=== PATIENT | female | born 1960 | race Two or more races ===

== ENCOUNTER 2023-11-10 11:45 | Emergency (ER) | payer OTHER, SELFPAY ==
[2023-11-10 11:47] VITALS: BP 176/91; BMI 28.3
[2023-11-10 11:51] VITALS: BP 168/90
[2023-11-10 13:32] LABS: % Basophils 1.3 % (0-2); % Eosinophils 5.4 % (0-6); % Immature Granulocytes 0.2 % (0-0.5); % Lymphocytes 38.7 % (20.5-51.1); % Monocytes 8.2 % (1.7-9.3); % Neutrophils 46.2 % (42.2-75.2); Absolute Basophils 0.1 10^3/uL (0-0.2); Absolute Eosinophils 0.3 10^3/uL (0-0.7); Absolute Lymphocytes 2.4 10^3/uL (1.2-3.4); Absolute Monocytes 0.5 10^3/uL (0.1-0.6); Absolute Neutrophils 2.9 10^3/uL (1.4-6.5); Hematocrit 36.9 % (37.0-47.0); Hemoglobin 12.3 g/dL (12.0-16.0); Mean Corp Hgb Conc. 33.3 g/dL (33.0-37.0); Mean Corpuscular Hgb 29.1 pg (27.0-31.0); Mean Corpuscular Volume 87.2 fL (81.0-99.0); Mean Platelet Volume 10.2 fL (7.4-10.4); Nucleated Red Blood Cells % 0 %; Platelet Count 298 10^3/uL (130-400); Red Blood Cell Count 4.23 10^6/uL (4.20-5.40); Red Cell Dist. Width 12.2 % (11.5-14.5); White Blood Cell Count 6.3 10^3/uL (4.8-10.8)
[2023-11-10 13:53] LABS: ALT (SGPT) 19 U/L (0-35); AST (SGOT) 31 U/L (14-36); Albumin 4.9 g/dl (3.5-5.0); Alkaline Phosphatase 70 U/L (38-126); Blood Urea Nitrogen 12 mg/dl (7-17); Calcium 11.1 mg/dl (8.4-10.2); Carbon Dioxide 30 mmol/L (22-30); Chloride 102 mmol/L (98-107); Estimated Creatinine Clearance 81 ml/min; Glucose 99 mg/dl (70-99); Potassium 4.4 mmol/L (3.5-5.1); Sodium 140 mmol/L (135-145); Total Bilirubin 0.9 mg/dl (0.2-1.3); eGFR > 60.00
--- NOTE | 2023-11-10 15:49 | ED.GENMED ---
History of Present Illness
General
Chief Complaint: Back Pain
Source: patient and family
Exam Limitations: none
Time Seen by Provider: 11/10/23 13:00
Nursing documentation reviewed up to this point in time: agreed with
History of Present Illness
History of Present Illness:
63-year-old female presenting to the emergency department with concerns of mid, upper back pain as well as neck pain over the past 3 weeks denies specific injury but has had discomfort with some movements and positioning. Also some discomfort to
the back of her head. Was given baclofen by the primary care doctor without relief.
Review of Systems
Review of Systems
Allergies reviewed?: Yes
All Other Systems: ROS reviewed and negative except as documented in HPI and ROS
Phy Exam
Physical Exam
Physical Exam:
GENERAL: Alert , in no apparent distress
EYE: pupils equal and reactive
NECK: Reproducible tenderness to the posterior lower paraspinal muscles no midline pain overlying redness swelling or warmth supple, no significant adenopathy.
ENT: o/p clr, mmm.
CARDIAC: Regular rate and rhythm .
LUNGS: Clear breath sounds bilaterally, no acute respiratory distress, no wheezes/rales/rhonchi
ABDOMEN: Soft, without focal tenderness, no r/g, no cvat
NEUROLOGICAL: Alert and oriented, no focal neuro deficits
SKIN: Warm and dry, skin intact.
MUSCULOSKELETAL: No edema, well perfused.
PSYCH: Normal and appropriate interaction.
Course
Orders/Labs/Results
Orders:
Orders
11/10/23 13:13
EKG [Electrocardiogram (*1)] Urgent
Reason for Study: Vertigo / Dizzy
CT Head & Neck Angio W/wo IV Urgent
Comment:
Reason For Exam: multiple stroke history, neck pain, dizziness,
EKG- Treatment ONCE
11/10/23 13:23
CBC/With Diff [Complete Blood Count/With Diff] Urgent
CMP [Comprehensive Metabolic Panel] Urgent
11/10/23 15:49
Diazepam [Valium] 5 mg PO NOW STA
Ketorolac [Toradol] 15 mg IV NOW STA
Ketorolac [Toradol] 30 mg IM NOW STA
Abnormal Lab Results
11/10/23
13:23
Hct 36.9 L %
(37.0-47.0)
Calcium 11.1 H mg/dl
(8.4-10.2)
11/10/23 13:23
11/10/23 13:23
Vital Signs
Initial and Last Documented VS:
Initial Vital Signs
Temp Pulse Resp BP Pulse Ox
98.2 F 72 16 176/91 99
11/10/23 11:47 11/10/23 11:47 11/10/23 11:47 11/10/23 11:47 11/10/23 11:47
Last Documented Vital Signs
Temp Pulse Resp BP Pulse Ox
98.2 F 73 16 168/90 97
11/10/23 11:47 11/10/23 11:51 11/10/23 11:51 11/10/23 11:51 11/10/23 11:51
MDM/Problems Addressed
MDM/Problems Addressed:
63-year-old female presenting to the emergency department with concerns of neck and upper back disc over the past 3 weeks. Here blood pressure elevated but otherwise vital signs are normal. Reproducible discomfort with movement of the head neck as
well as the upper shoulders. Labs unremarkable EKG normal. CT angiogram was performed considering she does have a history of stroke and has discomfort to her neck and also claims that she might of had some dizziness earlier today. Angiogram
without evidence of vascular abnormality. Symptoms at this point are most likely related to musculoskeletal issue. Plan for symptomatic treatment otherwise stable for outpatient management and close follow-up. Return precautions given.
*Critical Care Note
Total Time (30-74mins, 75-104mins- exclusive of procedures): Not Applicable
ED Attending Note
-
Portions of this chart may have been created with voice recognition software.� Occasional wrong word or��sound alike� substitutions may have occurred due to the inherent limitations of voice recognition software.
Discharge Plan
Departure
Patient Disposition: Home (Routine Discharge)
Date of Disposition: 11/10/23
Time of Disposition: 15:51
Patient with high blood pressure during this ER visit?: No
Condition: Good
Covid-19: Not Applicable
Discharge Problem:
Acute upper back pain, Acute neck pain
Instructions: Muscle Strain ED
Prescriptions:
New
tizanidine [Zanaflex] 2 mg capsule
2 mg PO Q8H PRN (Reason: muscle spasticity) Qty: 7 0RF
Referrals:
Konrad Rajan MD [Family Provider] -
Activity Restrictions/Additional Instructions:
You came to the emergency department today for concerns of discomfort to the upper back and neck. Your workup here was reassuring. Please follow closely as an outpatient. Return to the emergency department for any worsening, new or concerning
symptoms.
Interventions
Interventions:
*Risk Screen - Suicide Last Done: 11/10/23 11:47
*General Assessment Last Done: 11/10/23 11:58
*Neglect/Abuse Screening Last Done: 11/10/23 11:47
ED- Fall Risk Assessment Last Done: 11/10/23 11:58
*ED COVID-19 Vaccine History Last Done: 11/10/23 11:58
ED-Musculoskeletal Assessment Last Done: 11/10/23 11:58
Discharge Date and Time
Print Language: SWAZI
[2023-11-10] MEDS: TORADOL 15 MG IV (16:10)
[2023-11-10] MEDS: VALIUM 5 MG PO (16:10)
[2023-11-10 16:21] VITALS: BP 156/83
== END 2023-11-10 16:23 | disposition home or self-care (01) ==
LOC: EMR 11:45
PROVIDERS: Physician Assistant; EMERGENCY PHYSICIAN Emergency Medicine; FAMILY PHYSICIAN Internal Medicine
DX: M54.6 Pain in thoracic spine (principal); M54.2 Cervicalgia
CPT/HCPCS: 99285; 96374; 70496; 70498; 80053; 85025; 93005; Q9967

== ENCOUNTER → 2024-01-09 16:13 | Outpatient (REF) | payer OTHER, SELFPAY | LOC: WDC 16:13 | PROVIDERS: ATTENDING PHYSICIAN Physician Assistant; FAMILY PHYSICIAN Internal Medicine | DX: Z12.31 Encounter for screening mammogram for malignant neoplasm of breast (principal) | CPT/HCPCS: 77063; 77067 ==

== ENCOUNTER → 2024-04-24 11:34 | Outpatient (REF) | payer OTHER, SELFPAY | LOC: RAD 11:34 | PROVIDERS: ATTENDING PHYSICIAN Nurse Practitioner Family | DX: M54.2 Cervicalgia (principal) | CPT/HCPCS: 72050 ==

== ENCOUNTER 2024-06-05 06:34 | Day surgery (SDC) | payer OTHER, MEDICARE, SELFPAY | END 2024-06-05 14:43 | disposition home or self-care (01) | LOC: GI 06:34 | PROVIDERS: ATTENDING PHYSICIAN Internal Medicine Gastroenterology | DX: Z12.11 Encounter for screening for malignant neoplasm of colon (principal); K64.0 First degree hemorrhoids; D12.3 Benign neoplasm of transverse colon; K63.5 Polyp of colon | CPT/HCPCS: 45380; 88305 ==

== ENCOUNTER → 2024-11-04 07:59 | Outpatient (REF) | payer MEDICARE, OTHER, SELFPAY | LOC: HWRAD 07:59 | PROVIDERS: ATTENDING PHYSICIAN Physician Assistant; FAMILY PHYSICIAN Internal Medicine | DX: R10.13 Epigastric pain (principal) | CPT/HCPCS: 76700 ==

== ENCOUNTER 2024-11-09 09:10 | Emergency (ER) | payer MEDICARE, OTHER, SELFPAY ==
[2024-11-09 09:21] VITALS: BP 165/82
--- NOTE | 2024-11-09 11:09 | EDRN ---
Matthew FLORES in room w/pt.
--- NOTE | 2024-11-09 11:17 | ED.GENMED ---
History of Present Illness
General
Chief Complaint: Abdominal Pain
Source: patient
Exam Limitations: none
Time Seen by Provider: 11/09/24 10:56
History of Present Illness
History of Present Illness:
64-year-old female presents complaining of persistent epigastric abdominal pain that wraps around in a bandlike fashion around to her back. This has been present for the past 2 to 3 weeks. In the interim, she has seen GI as well as colorectal
surgery. Colorectal surgery deemed that she had hemorrhoids causing red blood in her rectum. She denies any black tarry stools. She is on Protonix 40 mg daily. She had an ultrasound as an outpatient which demonstrated gallstones but GI felt that
discomfort was not from the gallstones. She has an endoscopy scheduled for 2 weeks from now. The pain is too severe to continue waiting. The pain is not significantly made worse with eating. No fevers or vomiting. No chest pain or shortness of
breath. No other complaints.
Phy Exam
Physical Exam
Physical Exam:
General: Well-appearing female no acute respiratory distress
HEENT: Normocephalic atraumatic
Heart: Regular rate and rhythm
Lungs: Clear no wheeze
Abdomen soft tender in the epigastric region no guarding nondistended no costovertebral angle tenderness
Skin is warm no rash
Course
Orders/Labs/Results
Orders:
Orders
11/09/24 11:16
Electrocardiogram (*1) Urgent
Reason for Study: Abdominal Pain
EKG- Treatment ONCE
11/09/24 11:17
CT Abd/pelvis W Iv Cont Urgent
Comment:
Reason For Exam: abdominal pain
11/09/24 11:37
Complete Blood Count/With Diff Urgent
Troponin I Urgent
11/09/24 11:38
Comprehensive Metabolic Panel Urgent
Lipase Urgent
Abnormal Lab Results
11/09/24 11/09/24
11:37 11:38
MCHC 32.7 L g/dL
(33.0-37.0)
Neutrophils % 38.4 L %
(42.2-75.2)
Monocytes % 10.2 H %
(1.7-9.3)
Eosinophils % 7.6 H %
(0-6)
Total Protein 8.3 H g/dl
(6.3-8.2)
11/09/24 11:37
11/09/24 11:38
Vital Signs
Initial and Last Documented VS:
Initial Vital Signs
Temp Pulse Resp BP Pulse Ox
98.5 F 73 18 165/82 99
11/09/24 09:21 11/09/24 09:21 11/09/24 09:21 11/09/24 09:21 11/09/24 09:21
Last Documented Vital Signs
Temp Pulse Resp BP Pulse Ox
98.5 F 68 16 143/87 100
11/09/24 09:21 11/09/24 14:59 11/09/24 14:59 11/09/24 14:59 11/09/24 14:59
MDM/Problems Addressed
Differential Diagnosis Includes:
Abdominal pain. Consider gastritis versus ulcer versus pancreatitis or biliary colic. Recent ultrasound of the abdomen demonstrated cholelithiasis without signs of cholecystitis
Will check labs. In light of recent ultrasound and persistent pain CT ordered as well.
*Pulse Oximetry
SaO2: 99
Oxygen Mode of Delivery: Room air
Patient hypoxic: no
*Critical Care Note
Total Time (30-74mins, 75-104mins- exclusive of procedures): Not Applicable
Update Note
Update Note:
Workup here essentially unremarkable. CT negative other than known gallstones. No significant finding otherwise per there is mild amount of stool in the colon. The patient does take stool softeners and fiber. I suspect gastritis. She is due for
an endoscopy in another 2 weeks. Will add Carafate to the regimen. Discussed findings with patient and son. Son has relayed that the patient has had other symptoms in the past and it turned out to be conversion disorder. Cannot say that is the
case at this time.
ED Attending Note
-
Portions of this chart may have been created with voice recognition software.� Occasional wrong word or��sound alike� substitutions may have occurred due to the inherent limitations of voice recognition software.
Discharge Plan
Departure
Patient Disposition: Home (Routine Discharge)
Date of Disposition: 11/09/24
Time of Disposition: 15:15
Patient with high blood pressure during this ER visit?: No
Discharge Problem:
Abdominal pain
Instructions: Gastritis (DC)
Prescriptions:
New
sucralfate [Carafate] 1 gram tablet
1 g PO BID Qty: 14 0RF
No Action
tizanidine [Zanaflex] 2 mg capsule
2 mg PO Q8H PRN (Reason: muscle spasticity) Qty: 7 0RF
Referrals:
UNKNOWN - PT DOES,NOT KNOW [Family Provider]
Activity Restrictions/Additional Instructions:
Continue Protonix. Use Carafate twice a day. Follow-up with GI as planned. Return if needed
Interventions
Interventions:
*Risk Screen - Suicide Last Done: 11/09/24 09:21
*General Assessment Last Done: 11/09/24 11:44
*Neglect/Abuse Screening Last Done: 11/09/24 11:44
*ED- Fall Risk Assessment Last Done: 11/09/24 11:44
*ED COVID-19 Vaccine History Last Done: 11/09/24 11:44
MH-Gqbglg-Zbrviqyozk Assessment Last Done: 11/09/24 11:44
Discharge Date and Time
Print Language: [id number]
[2024-11-09 11:44] VITALS: BMI 29.5
[2024-11-09 11:50] LABS: Hematocrit 37.0 % (37.0-47.0); Hemoglobin 12.1 g/dL (12.0-16.0); Mean Corp Hgb Conc. 32.7 g/dL (33.0-37.0); Mean Corpuscular Volume 87.7 fL (81.0-99.0); Nucleated Red Blood Cells % 0 %; Platelet Count 295 10^3/uL (130-400); Red Cell Dist. Width 13.2 % (11.5-14.5)
[2024-11-09 12:03] VITALS: BP 157/83
[2024-11-09 12:12] LABS: ALT (SGPT) 21 U/L (0-35); AST (SGOT) 27 U/L (14-36); Albumin 4.7 g/dl (3.5-5.0); Alkaline Phosphatase 63 U/L (38-126); Blood Urea Nitrogen 12 mg/dl (7-17); Calcium 10.0 mg/dl (8.4-10.2); Carbon Dioxide 30 mmol/L (22-30); Chloride 106 mmol/L (98-107); Estimated Creatinine Clearance 79 ml/min; Glucose 92 mg/dl (70-99); Lipase 183 U/L (23-300); Potassium 4.3 mmol/L (3.5-5.1); Sodium 141 mmol/L (135-145); Total Protein 8.3 g/dl (6.3-8.2); eGFR > 60.00
[2024-11-09 12:15] LABS: Troponin I < 0.012 ng/ml
[2024-11-09 13:05] VITALS: BP 156/88
[2024-11-09 14:59] VITALS: BP 143/87
== END 2024-11-09 15:50 | disposition home or self-care (01) ==
LOC: EMR 09:10
PROVIDERS: Physician Assistant; EMERGENCY PHYSICIAN Emergency Medicine
DX: R10.13 Epigastric pain (principal); M54.9 Dorsalgia, unspecified; K80.20 Calculus of gallbladder without cholecystitis without obstruction; Z79.899 Other long term (current) drug therapy
CPT/HCPCS: 99284; 74177; 80053; 83690; 84484; 85025; 93005; Q9967

== ENCOUNTER 2024-11-24 06:34 | Day surgery (SDC) | payer MEDICARE, OTHER, SELFPAY | END 2024-11-24 11:55 | LOC: GI 06:34 | PROVIDERS: ATTENDING PHYSICIAN Internal Medicine Gastroenterology; FAMILY PHYSICIAN Internal Medicine | DX: R10.13 Epigastric pain (principal); K44.9 Diaphragmatic hernia without obstruction or gangrene; K31.89 Other diseases of stomach and duodenum; K22.89 Other specified disease of esophagus | CPT/HCPCS: 43239; 88305; 88342 ==